=== PATIENT | female | born 1980 | race Caucasian/White ===

== ENCOUNTER 2016-06-16 21:38 | Emergency (ER) | payer OTHER ==
[~2016-06-16] VITALS: Ht 154.9 cm; Wt 66.4 kg
[~2016-06-16 21:38] MED LIST: BACTRIM,SEPT1 TABLET PO; CLEOCIN150 MG PO; CLEOCIN300 MG PO; DOCUSATE SODIU100 MG PO; ENDOCET 5-3251 EACH PO; LORTAB 5-500 T1 EACH PO; NOHOMEMEDS; VENTOLIN HFA18 GM IH
[2016-06-17] MEDS ORDERED: CLEOCIN300 MG PO (00:05)
[2016-06-17] MEDS ORDERED: MOTRIN800 MG PO (00:05)
[2016-06-17 00:54] VITALS: BP 119/57
== END 2016-06-17 00:55 | disposition home or self-care (01) ==
LOC: EME 21:38 → EXP 21:38
DX: K04.7 Periapical abscess without sinus (principal)
CPT/HCPCS: 99281; 99285; J1885; J2405

== ENCOUNTER 2017-05-10 23:04 | Emergency (ER) | payer OTHER ==
[~2017-05-10] VITALS: Ht 154.9 cm; Wt 72.2 kg
[~2017-05-10 23:04] MED LIST changes: +MOTRIN800 MG PO
[2017-05-10 23:06] VITALS: BP 117/76
[2017-05-10 23:37] LABS: HEMATOCRIT 35.1 % (36.0-46.0); MCH 28.9 PG (29.0-34.0); MCV 87.3 FL (83-99); MEAN PLAT.VOLUME 10.5 uM^3 (9.5-12.4); PLATELET COUNT 293 K/uL (156-360); RBC DIS.WIDTH-CV 12.3 % (11.8-14.6); RBC DIS.WIDTH-SD 39.7 % (39-53); RED BLOOD COUNT 4.02 M/uL (3.80-5.20); WHITE BLOOD COUNT 10.1 K/uL (4.1-10.2)
[2017-05-10 23:49] LABS: CHLORIDE 107 mEq/L (99-109); POTASSIUM 3.5 mEq/L (3.7-5.4); SODIUM 138 mEq/L (136-147)
[2017-05-10 23:51] LABS: GLUCOSE 112 mg/dL (70-99)
[2017-05-10 23:52] LABS: ANION GAP 10 MEQ/L (2-14)
[2017-05-10 23:53] LABS: TOTAL BILIRUBIN 0.3 mg/dL (0.0-1.0)
[2017-05-10 23:54] LABS: ALKALINE PHOSPHATASE 50 IU/L (3-129)
[2017-05-10 23:55] LABS: GFR ESTIMATE (CALCULATED) > 59 mL/min/
[2017-05-10 23:56] LABS: UREA NITROGEN (BUN) 12 mg/dL (9-23)
[2017-05-11 00:03] LABS: QUANTITATIVE HCG < 4.0 MIU/ML
== END 2017-05-11 02:17 | disposition left against medical advice (07) ==
LOC: EME 23:04
DX: R05 Cough (principal); R06.2 Wheezing; R09.81 Nasal congestion; Z53.21 Procedure and treatment not carried out due to patient leaving prior to being seen by health care provider
CPT/HCPCS: 71020; 80053; 84702; 85027; 99281; 99283

== ENCOUNTER 2017-11-29 21:29 | Emergency (ER) | payer OTHER ==
[~2017-11-29] VITALS: Ht 154.9 cm; Wt 67.9 kg
[2017-11-29] MEDS ORDERED: MOTRIN600 MG PO (22:03)
[2017-11-29 22:12] VITALS: BP 134/78
== END 2017-11-29 22:12 | disposition home or self-care (01) ==
LOC: EME 21:29
DX: K08.89 Other specified disorders of teeth and supporting structures (principal); K04.7 Periapical abscess without sinus; K02.9 Dental caries, unspecified; Z88.2 Allergy status to sulfonamides; F17.200 Nicotine dependence, unspecified, uncomplicated
CPT/HCPCS: 99281; 99282